=== PATIENT | male | born 1975 | race Caucasian/White ===

== ENCOUNTER 2018-10-16 16:52 | Emergency (ER) | payer SELFPAY ==
[~2018-10-16] VITALS: Ht 172.7 cm; Wt 80.9 kg
[2018-10-16 17:15] LABS: GLUCOSE,POINT OF CARE 101 MG/DL (70-110)
[2018-10-16] MEDS ORDERED: FAMO20 PO (17:17)
[2018-10-16] MEDS ORDERED: ASPI81 PO (17:17)
[2018-10-16] MEDS ORDERED: ONDA4 PO (17:17)
[2018-10-16] MEDS ORDERED: LISI-661 PO (17:17)
[2018-10-16] MEDS ORDERED: METF500T7 PO (17:17)
[2018-10-16] MEDS ORDERED: LOVA20 PO (17:17)
[2018-10-16] MEDS ORDERED: ACETAMINOPHEN 500 MG TABLET PO ONE (19:15)
[2018-10-16] MEDS ORDERED: METOCLOPRAMIDE HCL 5 MG/ML 2 ML VIAL IVP ONE (19:15)
[2018-10-16] MEDS ORDERED: DiphenhydrAMINE HCL 50 MG/ML VIAL IVP ONE (19:15)
[2018-10-16] MEDS ORDERED: SODIUM CHLORIDE 0.9% 1,000 ML IV ONE (19:15)
[2018-10-16 19:55] LABS: BASOPHILS % (AUTO) 0.5 % (0.0-2.0); EOSINOPHILS % (AUTO) 2.8 % (1.0-6.0); HEMATOCRIT 46.5 % (41-53); HEMOGLOBIN 15.4 g/dL (13.5-17.5); LYMPHOCYTES # (AUTO) 2.8 K/uL (1.0-4.8); LYMPHOCYTES % (AUTO) 38.8 % (22.0-44.0); MEAN CORPUSCULAR HEMOGLOBIN 31.4 pg (26.0-34.0); MEAN CORPUSCULAR HGB CONC 33.1 G/dL (31.0-37.0); MEAN CORPUSCULAR VOLUME 95 fL (80-100); MONOCYTES # (AUTO) 0.5 K/uL (0.1-1.0); MONOCYTES % (AUTO) 6.7 % (2.0-9.0); NEUTROPHILS # (AUTO) 3.6 K/uL (1.8-7.7); NEUTROPHILS % (AUTO) 51.2 % (40.0-70.0); PLATELET COUNT (AUTO) 214 K/uL (150-450); RED BLOOD CELL COUNT(AUTO) 4.91 MIL/uL (4.50-5.90); RED CELL DISTRIBUTION WIDTH 12.2 % (11.5-14.5)
[2018-10-16 20:05] LABS: ANION GAP 7 mmol/L (8-16); CALCIUM, TOTAL 9.4 mg/dL (8.8-10.5); CARBON DIOXIDE 30 mmol/L (22-29); CHLORIDE 106 mmol/L (98-107); GLOMERULAR FILTR. RATE CALC > 60 mL/min (>60); GLUCOSE,RANDOM 105 mg/dL (70-110); POTASSIUM 4.1 mmol/L (3.5-5.1); SODIUM SERUM 143 mmol/L (136-145); UREA NITROGEN, BLOOD 16 mg/dL (7-18)
[2018-10-16 20:11] LABS: ALANINE AMINOTRANSFERASE 27 U/L (12-78); ALBUMIN 3.9 g/dL (3.4-5.0); ALKALINE PHOSPHATASE 70 U/L (46-116); ASPARTATE AMINOTRANSFERASE 16 U/L (15-37); BILIRUBIN,TOTAL 0.9 mg/dL (0.1-1.0); TOTAL PROTEIN, SERUM 7.4 g/dL (6.4-8.2)
[2018-10-16 21:39] VITALS: BP 101/74
== END 2018-10-16 21:41 | disposition home or self-care (01) ==
LOC: EMS 16:53
DX: R51 Headache (principal); R42 Dizziness and giddiness; R11.2 Nausea with vomiting, unspecified; Z79.84 Long term (current) use of oral hypoglycemic drugs; Z79.899 Other long term (current) drug therapy
CPT/HCPCS: 36415; 80053; 82962; 85025; 93005; 96361; 96374; 96375; 99284; J1200; J7030; J2765